=== PATIENT | female | born 1990 ===

== ENCOUNTER 2020-12-19 05:06 | Inpatient (IN) | payer BC ==
[2020-12-19] VITALS (39 sets, daily range): BP systolic 109–174; BP diastolic 54–110; PULSE 72–142; TEMP 97.6–99.7
[~2020-12-19] VITALS: Ht 170.2 cm; Wt 102.7 kg
--- NOTE | 2020-12-19 05:15 | NUR ---
G1 at 39 weeks and 3 days arrives to unit with complaint of contractions starting around 0100 this morning. Pt states contractions are 2-3 minutes apart and has had some vaginal bleeding. Denies large gush of fluid. Pt has been monitored closely for PIH. Denies symptoms of pre-e at this time. Pt appears to be uncomfortable. Clean gown on. Oriented to room, bed in low and locked position, call light within reach. US and toco explained and applied. Admission assessment started. Plan of care reviewed with patient and spouse. SVE /-3, bulging bag of water, bloody show on exam glove and perineum.
[2020-12-19] MEDS ORDERED: CALCIUM CARBON650 M2 (05:43)
[2020-12-19] MEDS ORDERED: PROTONIX20 MG PO (05:43)
[2020-12-19] MEDS ORDERED: PRENATAL TABLET PO (05:43)
[2020-12-19] MEDS ORDERED: TYLENOL PM EXTR1 TA1 PO (05:44)
--- NOTE | 2020-12-19 06:40 | NUR ---
PT REQUESTING EPIDURAL, ADRIÁN TURNER NOTIFIED, LR BOLUS INFUSING 0704: SS ADMINISTERED, VITAL SIGNS STABLE, BABY REMAINS CATEGORY 1, PT TOLERATED PROCEDURE WELL, REPORTS ALMOST IMMEDIATE RELIEF 0720: PT PLACED IN SUPINE POSITION FOR NEVES INSERTION, UPON LYING BACK PT BECOMES NAUSEATED AND HAS 1 EPISODE OF EMESIS, BP TRENDING DOWN, IV EPHEDRINE AND ZOFRAN ADMINISTERED TO TREAT SYMPTOMS, NO FURTHER ORDERS AT THIS TIME, TOCO AND EFM TRACING WELL, BABY REMAINS CATEGORY 1 THROUGHOUT THIS EVENT, BOLUS REMAINS INFUSING TO AIDE WITH BP'S 0835: AT BEDSIDE, SVE ANT.LIP/100/-1, BLOODY SHOW CONTINUES, AROM 0835 WITH CLEAR FLUID, PLACED INTO [place] POSITION PER , WILL BEGIN ROTATING SIDE TO SIDE Q3O MIN. WITH STIRRUPS, PT FEELING LESS NAUSEATED, BP STABLE, BABY REMAINS CATEGORY 1, EFM AND TOCO TRACING APPROPRIATELY
[2020-12-19 07:36] LABS: BASO % 0.2 % (0.0-2.0); EOS % 0.2 % (0-4.0); GRAN # 10.3 (1.4-6.5); GRAN % 85.1 % (42.2-75.2); HEMOGLOBIN 11.5 g/dl (12.5-16.0); LYMPH # 1.2 (1.2-3.4); LYMPH % 9.5 % (20.0-51.0); MEAN CELL VOLUME 93 fl (80.0-100.0); MEAN CORPUSCULAR HEMOGLOBIN 33 pg (27.0-31.0); MEAN CORPUSCULAR HGB CONC 35 g/dl (33.0-37.0); MEAN PLATELET VOLUME 10.4 fl (7.4-10.4); MONO # 0.5 (0.1-0.6); MONO % 4.5 % (1.7-9.3); PLATELET COUNT 266 K/mm3 (130-400); RED BLOOD COUNT 3.52 M/mm3 (4.10-5.30); REDCELL DISTRIBUTION WIDTH-CV 12.8 % (11.5-14.5)
[2020-12-19 07:39] LABS: HEMATOCRIT 32.7 % (37.0-47.0)
--- NOTE | 2020-12-19 12:30 | NUR ---
AT BEDSIDE, SVE /1, VERBAL ORDERS TO CONTINUE INCREASING PITOCIN AND CHANGING POSITIONS TO ASSIST IN BABY ENGAGING IN PELVIS, EDUCATION PROVIDED ON RISK FOR SECTION, PATIENT AGREEABLE AND OPEN TO OPTION, EFM AND TOCO TRACKING WELL, BABY REMAINS CATEGORY 1 AT THIS TIME
--- NOTE | 2020-12-19 13:20 | NUR ---
1320: PT USES CALL LIGHT TO REPORT INCREASED RECTAL PRESSURE, SVE COMPLETE/0, NEVES DC'D AND PT EDUCATED ON PUSHING EFFORTS, PRACTICE PUSH SUCCESSFUL, NOTIFIED OF PROGRESS, PT BEGINS PUSHING WITH CONTRACTIONS 1520: PT PUSHING X2 HOURS, MOVING VERTEX WELL, CAPUT PRESENT, NOTIFIED, SEE PHYS. NOTIFICATION, BABY TOLERATING PUSHING AND CONTRACTIONS WELL, REMAINS CATEGORY ONE ON EFM TRACING, ORDERS TO CONTINUE PUSHING AND CALL BACK WITH FURTHER PROGRESS 1529: PT'S PUSHING EFFORTS MAKING NOTABLE SIGNIFICANT CHANGE, NOTIFIED OF PT'S CURRENT STATUS AND THAT PT IS READY TO DELIVER 1538: ARRIVES AT BEDSIDE AND PREPARES FOR DELIVERY, BEGINS PUSHING WITH PATIENT 1553: SPONTANEOUS DELIVERY OF HEAD ASSISTED BY MD. PT CONTINUES TO PUSH. SPONTANEOUS DELIVERY OF BODY IMMEDIATELY FOLLOWS. VIABLE FEMALE INFANT TO MOTHERS ABDOMEN. CORD CLAMPED X2 AND CUT BY FOB. CARE OF INFANT ASSUMED BY WENDIE WHITAKER. APGARS 7/9/9. 1556: OF INTACT PLACENTA BY . FUNDAL MASSAGE FIRM. LOCHIA MODERATE. MULTIPLE CLOTS MANUALLY REMOVED BY MD. PITOCIN BOLUS STARTED PER PROTOCOL AND MD ORDER. 2ND DEGREE AND BILATERAL PERIURETHRAL REPAIRS BY . CONTINUOUS MODERATE LOCHIA AND CLOTS PERSIST. METHERGEN, HEMABATE, AND CYTOTEC GIVEN PER VERBAL ORDERS. SEE EMAR FOR TIMES. LR BOLUS INFUSING. DARSHANA COOLEY PER MD FOR REMOVAL OF TRAILING MEMBRANES. FUNDAL MASSAGE FIRM, LOCHIA WNL. EBL TOTAL 800ML. PERICARE PROVIDED BY MD AND THIS RN. UPDATED ON SAFETY AND POC.
[2020-12-20 03:30] VITALS: BP 113/59; PULSE 92; TEMP 98.6
[2020-12-20 05:55] LABS: BASO % 0.3 % (0.0-2.0); EOS % 0.3 % (0-4.0); GRAN # 11.2 (1.4-6.5); GRAN % 81.3 % (42.2-75.2); LYMPH # 1.5 (1.2-3.4); MEAN CELL VOLUME 95 fl (80.0-100.0); MEAN CORPUSCULAR HGB CONC 34 g/dl (33.0-37.0); MEAN PLATELET VOLUME 10.3 fl (7.4-10.4); MONO # 0.9 (0.1-0.6); MONO % 6.7 % (1.7-9.3); PLATELET COUNT 210 K/mm3 (130-400); REDCELL DISTRIBUTION WIDTH-CV 13.1 % (11.5-14.5)
[2020-12-20 06:04] LABS: HEMATOCRIT 22.8 % (37.0-47.0); HEMOGLOBIN 7.7 g/dl (12.5-16.0); MEAN CORPUSCULAR HEMOGLOBIN 32 pg (27.0-31.0)
[2020-12-20 09:00] VITALS: BP 110/64; PULSE 90; TEMP 98.5
[2020-12-20 13:00] VITALS: BP 114/53; PULSE 86; TEMP 98
[2020-12-20 17:20] VITALS: BP 115/84; PULSE 100; TEMP 97.7
[2020-12-20 20:00] VITALS: BP 130/72; PULSE 86; TEMP 98.2
[2020-12-21 06:50] VITALS: BP 134/78; PULSE 98; TEMP 97.9
[2020-12-21] MEDS ORDERED: FERROUS SU325 MG/TAB PO (08:22)
[2020-12-21] MEDS ORDERED: IBU600 MG PO (08:23)
[2020-12-21] MEDS ORDERED: PERCOCET 325 MG1 TA2 PO (08:26)
[2020-12-21 14:30] VITALS: BP 131/72; PULSE 85
== END 2020-12-21 15:10 | disposition home or self-care (01) | DRG 798 ==
LOC: LDR 05:06 → LDRO 05:06 → LDR 05:15 → LDRO 09:00 → LDR 09:16 → OB 09:16
PROVIDERS: Obstetrics & Gynecology; ADMIT Student in an Organized Health Care Education/Training Program
PROC: 10E0XZZ Delivery of Products of Conception, External Approach (ICD-10-PCS; principal; 2020-12-19)
PROC: 10D17ZZ Extraction of Products of Conception, Retained, Via Natural or Artificial Opening (ICD-10-PCS; 2020-12-19)
PROC: 0KQM0ZZ Repair Perineum Muscle, Open Approach (ICD-10-PCS; 2020-12-19)
PROC: 0UQMXZZ Repair Vulva, External Approach (ICD-10-PCS; 2020-12-19)
DX: O99.62 Diseases of the digestive system complicating childbirth (principal); Z37.0 Single live birth; K21.9 Gastro-esophageal reflux disease without esophagitis; O99.214 Obesity complicating childbirth; O70.1 Second degree perineal laceration during delivery; O71.82 Other specified trauma to perineum and vulva; O72.1 Other immediate postpartum hemorrhage; Z3A.39 39 weeks gestation of pregnancy; Z82.79 Family history of other congenital malformations, deformations and chromosomal abnormalities
CPT/HCPCS: J0690; J2210; J2405; J2590; J7120